=== PATIENT | male | born 1965 | race Caucasian/White ===

== ENCOUNTER 2017-10-29 04:52 | Inpatient (IN) | payer SELFPAY, OTHER, MEDICAID ==
[2017-10-29] MEDS: LORAZEPAM 2 MG INJ IV (05:36)
[2017-10-29] MEDS: SOD CHLORIDE 0.9% 500 ML IV (05:36)
[2017-10-29 06:04] LABS: ADD MAN DIFF? NO
[2017-10-29 06:10] LABS: WHITE BLOOD COUNT 5.6 10^3/ul (4.8-10.8)
[2017-10-29 06:10] LABS: BASOPHILS % 0.5 % (0.0-2.0); EOSINOPHILS # 0.3 10^3/ul (0.0-0.5); EOSINOPHILS % 5.7 % (0.0-7.0); HEMATOCRIT 47.6 % (42.0-52.0); HEMOGLOBIN 16.3 g/dl (14.0-18.0); LYMPHOCYTES # 1.6 10^3/ul (0.8-2.9); LYMPHOCYTES % 27.7 % (15.0-51.0); MEAN CORPUSCULAR HEMOGLOBIN 31.4 pg (29.0-33.0); MEAN CORPUSCULAR HGB CONC 34.2 g/dl (32.0-37.0); MEAN CORPUSCULAR VOLUME 91.7 fl (82.0-101.0); MEAN PLATELET VOLUME 9.4 fl (7.4-10.4); MONOCYTE # 0.7 10^3/ul (0.3-0.9); NEUTROPHILS % 52.4 % (39.0-77.0); PLATELET COUNT 208 10^3/UL (140-415); RED BLOOD COUNT 5.19 10^6/ul (4.70-6.10); RED CELL DISTRIBUTION WIDTH 12.4 % (11.5-14.5)
[2017-10-29 06:44] LABS: ANION GAP 21 (8-16); BLOOD UREA NITROGEN 15 mg/dl (7-20); CALCIUM 8.8 mg/dl (8.4-10.2); CARBON DIOXIDE 22 mmol/L (21-31); CHLORIDE 108 mmol/L (97-110); CREATININE 0.79 mg/dl (0.61-1.24); GLUCOSE 109 mg/dl (70-220); SODIUM 147 mmol/L (135-144)
[2017-10-29] MEDS ORDERED: NACL 0.9% 3 ML SYG IV (07:00)
[2017-10-29] MEDS ORDERED: LORAZEPAM 2 MG INJ IV ×2 (07:00)
[2017-10-29] MEDS ORDERED: morphine 2 MG INJ IV (07:00)
[2017-10-29] MEDS ORDERED: ONDANSETRON 4 MG INJ IV (07:00)
[2017-10-29] MEDS ORDERED: CHLORDIAZEPOXIDE 25 MG CAP PO (09:00)
[2017-10-29] MEDS: LEVETIRACETAM 500 MG (PMX) 100 ML IVPB (09:15)
[2017-10-29] MEDS: FAMOTIDINE 20 MG TAB PO (12:21)
[2017-11-01] MEDS ORDERED: MULTIVITAMINS 10 ML, THIAMINE 100 MG, FOLIC ACID 1 MG in SOD CHLORIDE 0.9% 1,000 ML IVPB (09:00)
== END 2017-10-29 12:46 | disposition home or self-care (01) | DRG 918 ==
LOC: TEL 12:46 → E/R 04:52 → TEL 05:41 → E/R 12:46
PROC: 4A10X4Z Monitoring of Central Nervous Electrical Activity, External Approach (ICD-10-PCS; principal; 2017-10-29)
DX: T50.995A Adverse effect of other drugs, medicaments and biological substances, initial encounter (principal); G40.501 Epileptic seizures related to external causes, not intractable, with status epilepticus; Y92.009 Unspecified place in unspecified non-institutional (private) residence as the place of occurrence of the external cause
CPT/HCPCS: 36415; 70450; 80048; 85025; 93005; 95819; 96374; 96375; 99285-25